=== PATIENT | female | born 1980 | race Caucasian/White ===

== ENCOUNTER 2022-04-29 13:52 | Outpatient (CLI) | payer BC, SELFPAY ==
[2022-04-29 22:24] LABS: HIV 1/2/P24 Combo Screen* Negative (Negative)
[2022-04-29 22:51] LABS: Chlamydia DNA Amplified* NOT DETECTED (No Detected); GC DNA Amplified* NOT DETECTED (No Detected)
[2022-05-01 15:39] LABS: Rapid Plasma Reagin (RPR) Non Reactive (Non Reactive)
== END 2022-04-29 13:53 | disposition home or self-care (01) ==
PROVIDERS: PCP Family Medicine; Visit Provider Family Medicine
DX: Z11.3 Encounter for screening for infections with a predominantly sexual mode of transmission (principal); B00.1 Herpesviral vesicular dermatitis
CPT/HCPCS: 86592; 86703; 87491; 87591

== ENCOUNTER 2022-05-07 07:12 | Outpatient (CLI) | payer BC, SELFPAY | END 2022-05-07 07:13 | disposition home or self-care (01) | LOC: OP CLINIC 07:13 | PROVIDERS: PCP Family Medicine; Visit Provider Surgery | DX: R19.8 Other specified symptoms and signs involving the digestive system and abdomen (principal); K22.89 Other specified disease of esophagus; K31.89 Other diseases of stomach and duodenum; K21.9 Gastro-esophageal reflux disease without esophagitis | CPT/HCPCS: 43239; 88305; J2250; J3010 ==

== ENCOUNTER 2023-07-24 15:25 | Outpatient (CLI) | payer BC, SELFPAY | END 2023-07-24 15:26 | disposition home or self-care (01) | PROVIDERS: PCP Physician Assistant Medical; Visit Provider Family Medicine | DX: Z00.00 Encounter for general adult medical examination without abnormal findings (principal); K29.70 Gastritis, unspecified, without bleeding; D61.818 Other pancytopenia; Z11.3 Encounter for screening for infections with a predominantly sexual mode of transmission; Z11.59 Encounter for screening for other viral diseases | CPT/HCPCS: 80053; 80061; 86592; 86703; 86706; 86803 ==

== ENCOUNTER 2023-11-04 14:05 | Outpatient (CLI) | payer BC, SELFPAY ==
--- NOTE | 2023-11-04 14:40 | MM_ITS ---
Patient: NEGRITA CHAPA Facility:?[facility] Patient ID:?[id number] Site Patient ID:?[id number]. Site :?[id number] Study:?XRay-Breast 3D W/CAD-11/04/2023 2:36:07 PM Ordering Physician:Rio Neely Final Report: BILATERAL SCREENING MAMMOGRAM WITH COMPUTER-AIDED DETECTION AND TOMOSYNTHESIS TECHNIQUE: CC and MLO views were obtained. These mammographic images have been obtained using full-field digital technique. These mammographic images were interpreted with the benefit of computer-aided detection. Breast Tomosynthesis was used in this interpretation. COMPARISON FILM: 12/18/21, 05/02/20, 07/28/17. FINDINGS: The breasts are extremely dense, which lowers the sensitivity of mammography. IMPRESSION: There is no radiographic evidence for malignancy. ASSESSMENT: BI-RADS Category 1: Negative RECOMMENDATION: Routine screening mammogram in 1 year. A lay language report of this examination will be provided to the patient. Nicolas Driscoll M.D. Diagnostic Radiologist [email or web address] DSM/sp R& Transcribed: 2:34 p.m. SP/Dictated by: Nicolas Driscoll MD @ 11/05/2023 10:56:00 AM Signed by:?Nicolas Driscoll MD @11/05/2023 3:20:38 PM (Electronic Signature)
== END 2023-11-04 14:06 | disposition home or self-care (01) ==
LOC: MAMMO 14:05
PROVIDERS: PCP Physician Assistant Medical; Visit Provider Family Medicine
DX: Z12.31 Encounter for screening mammogram for malignant neoplasm of breast (principal); R92.2 Inconclusive mammogram
CPT/HCPCS: 77063; 77067

== ENCOUNTER 2023-12-15 06:03 | Day surgery (SDC) | payer BC, SELFPAY ==
[2023-12-15] VITALS (14 sets, daily range): BP systolic 106–174; BP diastolic 63–108; PULSE 60–83; RESP 14–20; TEMP 36.4–36.6; O2SAT 93–98; BMI 22.8
--- OUTSIDE RECORDS SUMMARY | 2023-12-15 06:05 | XMS_ITS | Clinical Summary ---
Author Name Unknown Organization [employer] Address [place], [place] [address] Care Team Providers Care Tip Banding Machine Operator Name Role Phone Bianca Dugan MD Primary Care Provider Allergies No known active allergies Medications Medication Sig Dispensed Refills Start Date End Date Status oxyCODONE-acetamin ophen, 5-325 mg, (PERCOCET) per tablet Take 1-2 tablets by mouth every 4 hours if needed for Pain. Max acetaminophen dose: 4000mg in 24 hrs. 10 tablet 10/22/2013 Active ibuprofen (ADVIL; MOTRIN) 600 mg tablet Take 1 tablet by mouth 4 times daily if needed. Maximum of 3200 mg in 24 hours. 1 tablet 0 10/22/2013 Active ibuprofen (ADVIL; MOTRIN) 600 mg tablet Take 1 tablet by mouth 4 times daily if needed maximum of 3200mg in 24 hours. 1 tablet 10/22/2013 Active Social History Tobacco Use Types Packs/Day Years Used Date Smoking Tobacco: Never Alcohol Use Standard Drinks/Week Comments No 0 (1 standard drink = 0.6 oz pur e alcohol) Sex and Gender Information Value Date Recorded Sex Assigned at Not on file Gender Identity Not on file Sexual Orientation Not on file Obstetrics History Last Filed Vital Signs Vital Sign Reading Time Taken Comments Blood Pressure 127/73 10/22/2013 9:15 AM SILK FINISHER Pulse 60 10/22/2013 9:15 AM SILK FINISHER Temperature 36.4 ??C (97.6 ??F) 10/22/2013 8:45 AM CS T Respiratory Rate 16 10/22/2013 9:15 AM SILK FINISHER Oxygen Saturation 100% 10/22/2013 9:15 AM SILK FINISHER Inhaled Oxygen Concentration - - Weight 50.3 kg (111 lb) 10/22/2013 6:43 AM SILK FINISHER Height 160 cm (5' 3) 10/22/2013 6:43 AM SILK FINISHER Body Mass Index 19.66 10/22/2013 6:43 AM SILK FINISHER Plan of Treatment Not on file Advance Directives * Full Code (Latest Code Status on File) Date Activated Date Inactivated Comments 10/22/2013 6:23 AM 10/22/2013 3:46 PM Care Teams Tip Banding Machine Operator Relationship Specialty Start Date End Date Bianca Dugan MD PCP - General Family Practice 10/14/13
[2023-12-15 06:24] LABS: Ur HCG Qualitative* Negative (Negative)
[2023-12-15] MEDS: SODIUM CHLORIDE 0.9 % (FLUSH) 10 ML SYRINGE IVF (07:00)
[2023-12-15] MEDS: LACTATED RINGERS 1000 ML 1,000 ML 100 ML IV ×2 (07:00→08:31)
[2023-12-15] MEDS: MIDAZOLAM HCL 1 MG/ML inj IVP (07:10)
[2023-12-15] MEDS: fentaNYL 100 MCG/2 ML inj IVP (07:10)
--- NOTE | 2023-12-15 07:17 | W.PM.H&PU ---
History & Physical Update History & Physical Update H&P Reviewed and patient assessed: No changes noted
--- NOTE | 2023-12-15 07:17 | SUR.PREOP ---
TIME?OUT:?0709 PT/RN/MDA?VERIFICATION?OF?SURGICAL?SITE Right Shoulder,?PROCEDURE Nerve Block,?AND?CONSENT OBTAINED?PRIOR?TO?INVASIVE?PROCEDURE.
[2023-12-15] MEDS: CEFAZOLIN 2 GM in 0.9 % SODIUM CHLORIDE Mini-bag 100 ML IVPB (07:43)
[2023-12-15] MEDS: EPINEPHrine 1 MG in SODIUM CHLORIDE IRRIG SOLUTION 3,000 ML 950 MG IRRIGATION (07:55)
[2023-12-15] MEDS: EPINEPHrine 1 MG in SODIUM CHLORIDE IRRIG SOLUTION 3,000 ML IRRIGATION (08:00)
--- NOTE | 2023-12-15 08:41 | PM.ORPRC ---
Procedure Note Date of procedure: 12/15/23 Procedure: PREOPERATIVE DIAGNOSES: 1. Right shoulder SLAP tear POSTOPERATIVE DIAGNOSES: 1. Right shoulder SLAP tear NAME OF OPERATION: 1. Right shoulder arthroscopic limited glenohumeral debridement 3. Right shoulder open subpectoral biceps tenodesis SURGEON: Milton Mauro MD CUFF CUTTER: Yahir Garcia PA-C. Of note, a skilled assistant gm of content & delivery was critical for this case to aide in patient positioning, suture manipulation, arm positioning, instrument positioning, and closure. ANESTHESIA: General plus preoperative supraclavicular block. EBL: 10 mL IMPLANTS: [Arthrex 4.75 mm BioComposite SwiveLock suture anchor] [(x1);] COMPLICATIONS: None evident INDICATIONS: The patient is a pleasant, 43-year-old female who has experienced right shoulder pain that has been increasing in recent time. Physical exam and imaging were consistent with a SLAP tear. Given their findings, as well as the weakness and pain, and inadequate response to nonoperative management, recommendation was made for surgery. FINDINGS: Exam under anesthesia revealed stable shoulder with excellent range of motion. The diagnostic arthroscopy revealed [healthy chondral surfaces of the glenohumeral joint]. The Subscapularis tendon was [intact and with a healthy attachment]. The long head of the biceps tendon was overall intact but did show tearing at its origin including SLAP tear/labral tearing superiorly posterosuperiorly. The superior rotator cuff tendon was found to be intact and with healthy attachment/insertion. The middle glenohumeral ligament appeared to have a [place] complex variation. No loose bodies were identified within the pouch or subscapularis recess. PROCEDURE: Following a thorough discussion of risks, benefits, and alternatives, consent was obtained and the right shoulder was marked. The patient was brought to the operating room and placed supine on the operating table. Induction of anesthesia was completed after preoperative supraclavicular block was administered in preop holding. Appropriate time out was performed identifying proper patient, site, and procedure. 2 g IV Ancef was administered within 1 hour of incision preoperatively. The right upper extremity was prepped and draped in the appropriate sterile fashion using ChloraPrep prep. This was after the patient was positioned in the beach chair with their head in neutral alignment and all bony prominences well padded. The shoulder was insufflated with 20mL of normal saline via an 18g spinal needle from a posterior approach. An 11 blade skin incision allowed a blunt trochar to be inserted and diagnostic arthroscopy to be performed with the findings as noted above. An anterior portal was established with an outside in technique. This allowed the probe to be inserted and confirm the diagnostic arthroscopic findings. The long head of the biceps was tagged with the spinal needle and PDS suture and retrieved with a Cochran for later confirmation of the biceps from the subpectoral approach. Thereafter, arthroscopic scissors was utilized to cut the biceps at its origin. The remaining labral tissue was debrided with the torpedo shaver on the superior labrum that was torn. Following this, the upper border subscapularis was probed and found to be stable with only minimal low-grade partial-thickness deep surface fraying. We then turned our attention to the open subpectoral biceps tenodesis portion. A longitudinal incision was made from the axillary crease anteriorly up over the anterior shoulder in Khushi's lines. Sharp incision through skin and blunt dissection through the subcutaneous tissue loss to identify the pectoralis major tendon insertion. The pect tendon was lifted cephalad and the bicipital groove was palpated. The biceps was visualized, tucked down, and the PDS tag sutures were confirmed to be moving confirming that it is the proper structure. The tendon was retrieved out the wound. Whip stitched with the # 2 FiberLoop approximately from musculotendinous junction extending distal approximately 2.5-3 cm. We then drilled the guide pin hole in the bicipital groove high in the groove followed by 5 mm Reamer. The tendon was sized to be approximately 4-4.5 mm tendon. The tendon was dunked after thorough irrigation normal saline, and that SwiveLock suture anchor placed with excellent compression of the tendon and good security after dunking the tendon. Again a thorough irrigation normal saline was performed. Closure performed with 3-0 Vicryl for subcutaneous and 4-0 Stratafix for subcuticular closure. Dressing was applied. Sling applied. Patient was woken from anesthesia and transferred to recovery room stable condition. A skilled assistant gm of content & delivery was critical for this case to aid in patient positioning, limb positioning, skill to manipulate arthroscopic instruments and camera, suture management, patient safety, and closure. PLAN: 1. Elbow, forearm, wrist and digit range of motion as tolerated. 2. Encouraged ice. 3. Oxycodone for pain as needed. 4. Sling at all times except for ROM and showering. 5. Follow up with PA visit in 1-2 weeks for wound check. Active range of motion. Lift no more than a coffee cup times 4-6 weeks. Then, begin very light weight training slowly gradually increasing the load.
--- NOTE | 2023-12-15 09:08 | W.ANESCHARGE ---
Anesthesia Charges Start Date/Time Anesthesia Start Date: 12/15/23 Anesthesia Start Time: 07:18 Stop Date/Time Anesthesia Stop Date: 12/15/23 Anesthesia Stop Time: 09:09
--- NOTE | 2023-12-15 09:36 | W.PM.NB ---
Nerve Block Nerve Block Time Seen by Provider: 07:13 Date Seen: 12/15/23 Type of block requested by surgeon for post-operative analgesia: supraclavicular Side: right Time out performed: Yes Verification of patient name: Yes Verification of date of : Yes Site marking: site marked Name of person performing procedure: Eldon Continuous monitoring Was continuous monitoring of O2 sat, B/P, powerplant operator, recorded every 15 minutes?: Yes Procedure Checklist: sterile prep, needles and gloves Ultrasound guided. Images saved: Yes Medications given in 5ml increments after negative aspiration: Ropivicaine %: 0.5 mL: 20 Needle gauge: 22 Decadron (mg): 10 Precedex (mcg): 25 Patient tolerated procedure well: Yes Block Charges Block Charge (with Pro Fee): Brachial Plexus Use of Ultrasound Machine for Block: Yes- US Guidance/pain block
--- NOTE | 2023-12-15 09:37 | W.ANESCHARGE ---
Anesthesia Charges Start Date/Time Anesthesia Start Date: 12/15/23 Anesthesia Start Time: 07:18 Stop Date/Time Anesthesia Stop Date: 12/15/23 Anesthesia Stop Time: 09:09
--- NOTE | 2023-12-15 09:39 | SUR.PHASEI ---
Meets PACU/Anesthesia parameters to discharge from PACU
== END 2023-12-15 10:35 | disposition home or self-care (01) ==
PROVIDERS: Nurse Anesthetist, Certified Registered; PCP Family Medicine; Visit Provider Orthopaedic Surgery Sports Medicine
PROC: (CPT 29805; principal; 2023-12-15 07:15)
DX: S43.431A Superior glenoid labrum lesion of right shoulder, initial encounter (principal); G89.18 Other acute postprocedural pain
CPT/HCPCS: 29822; 23430; 01630; 64415; 76942; 81025; C1713; J0171; J0690; J1100; J1630; J2250; J2371; J2405; J2704; J2710; J2795; J3010; J7120; L3670

== ENCOUNTER 2024-01-05 11:34 | Day surgery (SDC) | payer BC, SELFPAY ==
[2024-01-05] VITALS (10 sets, daily range): BP systolic 103–129; BP diastolic 61–88; PULSE 58–89; RESP 14–16; TEMP 36.2–36.9; O2SAT 92–100; BMI 22.8
--- OUTSIDE RECORDS SUMMARY | 2024-01-05 11:37 | XMS_ITS | Clinical Summary ---
Author Name Unknown Organization [facility] Address [place], [place] [address] Care Team Providers Care Product Development Worker Name Role Phone Bianca Dugan MD Primary [...] Comments Blood Pressure 127/73 10/22/2013 9:15 AM COMMERCIAL ADMINISTRATOR Pulse 60 10/22/2013 9:15 AM COMMERCIAL ADMINISTRATOR Temperature 36.4 ??C (97.6 ??F) 10/22/2013 8:45 AM CS T Respiratory Rate 16 10/22/2013 9:15 AM COMMERCIAL ADMINISTRATOR Oxygen Saturation 100% 10/22/2013 9:15 AM COMMERCIAL ADMINISTRATOR Inhaled Oxygen Concentration - - Weight 50.3 kg (111 lb) 10/22/2013 6:43 AM COMMERCIAL ADMINISTRATOR Height 160 cm (5' 3) 10/22/2013 6:43 AM COMMERCIAL ADMINISTRATOR Body Mass Index 19.66 10/22/2013 6:43 AM COMMERCIAL ADMINISTRATOR Plan of Treatment Not on file Advance Directives * Full Code (Latest Code Status on File) Date Activated Date Inactivated Comments 10/22/2013 6:23 AM 10/22/2013 3:46 PM Care Teams Product Development Worker Relationship Specialty Start Date End Date Bianca Dugan MD PCP - General Family Practice 10/14/13
--- NOTE | 2024-01-05 12:06 | W.PM.H&PU ---
History & Physical Update History & Physical Update H&P Reviewed and patient assessed: No changes noted
[2024-01-05] MEDS: LACTATED RINGERS 1000 ML 1,000 ML 100 ML IV (12:11)
[2024-01-05] MEDS: MIDAZOLAM HCL 1 MG/ML inj IVP (12:25)
[2024-01-05] MEDS: fentaNYL 100 MCG/2 ML inj IVP (12:25)
--- NOTE | 2024-01-05 12:25 | P.NB_ITS ---
Nerve Block Nerve Block Time Seen by Provider: 12:23 Date Seen: 01/05/24 Type of block requested by surgeon for post-operative analgesia: supraclavicular Side: right Time out performed: Yes Verification of patient name: Yes Verification of date of : Yes Site marking: site marked Name of person performing procedure: Eldon Continuous monitoring Was continuous monitoring of O2 sat, B/P, outpatient services director, recorded every 15 minutes?: Yes Procedure Checklist: sterile prep, needles and gloves Ultrasound guided. Images saved: Yes Medications given in 5ml increments after negative aspiration: Ropivicaine %: 0.5 mL: 20 Needle gauge: 22 Decadron (mg): 10 Precedex (mcg): 25 Patient tolerated procedure well: Yes Block Charges Block Charge (with Pro Fee): Brachial Plexus Use of Ultrasound Machine for Block: Yes- US Guidance/pain block
--- NOTE | 2024-01-05 12:26 | SUR.PREOP ---
TIME?OUT:?1222 PT/RN/MDA?VERIFICATION?OF?SURGICAL?SITE,?PROCEDURE,?AND?CONSENT OBTAINED?PRIOR?TO?INVASIVE?PROCEDURE.
--- NOTE | 2024-01-05 12:27 | W.ANESCHARGE ---
Anesthesia Charges Start Date/Time Anesthesia Start Date: 01/05/24 Anesthesia Start Time: 12:31 Stop Date/Time Anesthesia Stop Date: 01/05/24 Anesthesia Stop Time: 14:26
[2024-01-05] MEDS: CEFAZOLIN 2 GM in 0.9 % SODIUM CHLORIDE Mini-bag 100 ML IVPB (12:37)
--- NOTE | 2024-01-05 14:21 | P.ORPRC_ITS ---
Procedure Note Date of procedure: 01/05/24 Procedure: PREOPERATIVE DIAGNOSIS: Right proximal biceps rupture after previous subpectoral biceps tenodesis (12/15/2023) POSTOPERATIVE DIAGNOSIS: Right proximal biceps rupture after previous subpectoral biceps tenodesis (12/15/2023) PROCEDURE: 1. Right open distal biceps re-repair 2. 56155 - intraoperative fluoroscopy up to 1 hour. SURGEON: Milton Mauro MD APPLICATIONS PROJECT MANAGER: [Yahir Garcia PA-C; Chris MCCOLLUM] (Of note, use of an retail loan originator assistant was critical for this case to aid in patient positioning, tissue retraction, nerve protection, arm positioning, suture management, and closure) ANESTHESIA: [General endotracheal anesthetic plus supraclavicular regional block] TOURNIQUET: None IMPLANTS: Arthrex knotless biceps tenodesis FiberTak (x1); Arthrex knotless 2.6 mm FiberTak double loaded shuttle suture (x1) COMPLICATIONS: [None evident] INDICATIONS FOR PROCEDURE: The patient is a pleasant 43-year-old female, right hand dominant. She underwent right shoulder subpectoral biceps tenodesis 12/15/2023. This procedure went smoothly without any findings of complication. Unfortunately, the postoperative time, she was simply felt a cramp in her right bicep region and subsequent pain and deformity/Bennett deformity. Repeat clinic al evaluation indeed showed suspicion of complete proximal biceps re-rupture with associated Bennett deformity. Given her cramping, pain, and deformity, surgery was indicated. DESCRIPTION OF PROCEDURE: Following a thorough discussion of the risks, benefits and alternatives, consent was obtained and the right shoulder was marked. The patient was brought to the operating room, placed supine on the operating table. Induction of general anesthesia was undertaken after a supraclavicular block was administered in the preop holding. Appropriate time out was performed to identify proper patient, site and procedure. The operative upper extremity was prepped and draped in the appropriate sterile fashion using ChloraPrep prep. 1 g IV Ancef was administered within 1 hour of incision preoperatively. The previous incision was reopened and extended further distal down the arm. The pectoralis tendon was identified and elevated superiorly. We were able to identify the bicipital groove. Indeed, it was void. Distally, we were able to identify the biceps stump. This showed that it had re-ruptured distal to the previously with it sutures. The sutures and the anchor and the proximal tendon stump were all still in its spot following the previous tenodesis. We did debride the remaining tendon stump and the sutures from the wound. The anchor remained in place and was left. Unfortunately, with the biceps tendon tearing mid substance beyond the previous with suture, this left us with a very short stump. Approximately 1.5-2 cm in fact. We were able to whipstitch this with a FiberLoop, which allowed us to have a good hold of the remaining tendon. After thorough irrigation normal saline, the bicipital groove was prepared with a rasp to debride the bone on its superficial surface. The Arthrex knotless biceps tenodesis FiberTak anchor was drilled, placed, and the sutures passed with the pseudo-loop 'N' matt technique. This allowed excellent compression of the biceps at the mild tendinous junction against the humerus bone. A 2nd anchor was then drilled and placed at the proximal extent of the with sutures. The 2 tails were passed with a shuttle sutures and secured into the humeral anchor. These were then tied over the top reinforcing the security to the proximal anchor. Thorough irrigation normal saline again was performed. The biceps was fixed with the elbow in full extension and normal/appropriate/full tension on the biceps during this fixation. The contour of the biceps was restored after securing the tendon. Closure was performed in layered fashion with 3-0 Vicryl and 4-0 Monocryl for subcutaneous and subcuticular closure, respectively. Dressings were applied. The patient was woken per Anesthesia transferred to recovery room stable condition. PLAN: 1. Ice and elevate operative upper extremity. 2. Finger range of motion as tolerated. 3. Follow up with PA visit in 10 days. Wound check. Active range of motion operative elbow and forearm as tolerated. lift nothing more than a coffee cup x 6 weeks. 4. Ibuprofen, Tylenol, and/or oxycodone for pain as needed.
--- NOTE | 2024-01-05 14:28 | W.ANESCHARGE ---
Anesthesia Charges Start Date/Time Anesthesia Start Date: 01/05/24 Anesthesia Start Time: 12:31 Stop Date/Time Anesthesia Stop Date: 01/05/24 Anesthesia Stop Time: 14:26
[2024-01-05] MEDS: LACTATED RINGERS 1000 ML 1,000 ML 35 ML IV (14:33)
== END 2024-01-05 15:29 | disposition home or self-care (01) ==
LOC: OR 11:36
PROVIDERS: PCP Family Medicine; Visit Provider Orthopaedic Surgery Sports Medicine
PROC: (CPT 24341; principal; 2024-01-05 12:30)
DX: S46.211A Strain of muscle, fascia and tendon of other parts of biceps, right arm, initial encounter (principal); G89.18 Other acute postprocedural pain
CPT/HCPCS: 24341; 01610; 01630; 64415; 76942; A4580; C1713; J0330; J0690; J1100; J2250; J2371; J2405; J2704; J2795; J3010; J7120

== ENCOUNTER 2024-03-10 15:00 | Outpatient (RCR) | payer BC, SELFPAY | END 2024-07-08 11:18 | disposition home or self-care (01) | PROVIDERS: PCP Family Medicine; Visit Provider Physician Assistant Surgical | DX: Z98.890 Other specified postprocedural states (principal); M25.511 Pain in right shoulder; Z74.09 Other reduced mobility; R53.1 Weakness; Z51.89 Encounter for other specified aftercare | CPT/HCPCS: 97110; 97162 ==

== ENCOUNTER 2024-11-29 16:39 | Outpatient (CLI) | payer BC, SELFPAY | END 2024-11-29 16:40 | disposition home or self-care (01) | PROVIDERS: PCP Family Medicine; Visit Provider Family Medicine | DX: Z90.710 Acquired absence of both cervix and uterus (principal); Z11.3 Encounter for screening for infections with a predominantly sexual mode of transmission; Z11.4 Encounter for screening for human immunodeficiency virus [HIV]; Z11.59 Encounter for screening for other viral diseases; Z13.29 Encounter for screening for other suspected endocrine disorder | CPT/HCPCS: 82670; 83001; 83002; 84144; 84403; 86592; 86703; 86803; 87491; 87591 ==

== ENCOUNTER 2024-12-01 09:21 | Outpatient (CLI) | payer BC, SELFPAY ==
[2024-12-01 14:53] LABS: Bacterial Vaginosis* POSITIVE (Negative); Candida glab/krus NOT DETECTED (No Detected); Candida species NOT DETECTED (No Detected); Trichomonas vaginalis NOT DETECTED (No Detected)
== END 2024-12-01 09:22 | disposition home or self-care (01) ==
PROVIDERS: PCP Family Medicine; Visit Provider Obstetrics & Gynecology
DX: N89.8 Other specified noninflammatory disorders of vagina (principal)
CPT/HCPCS: 81513; 87481; 87661